=== PATIENT | female | born 1955 | race Hispanic/Latino ===

== ENCOUNTER 2019-02-22 03:44 | Emergency (ER) | payer SELFPAY ==
[2019-02-22] MEDS ORDERED: Meclizine HCl 25 MG TAB ONE (04:01)
--- NOTE | 2019-02-22 07:30 | CT ---
PRELIMINARY REPORT/[facility]/EMERGENCY AFTER HOURS PROCEDURE: PROCEDURE INFORMATION: Exam: CT Head without contrast Exam date and time: 02/22/2019 4:09 AM Clinical history: 63 years old, female; Patient HX: 63 y/o F presents to ED C/O dizziness. She report s onset as yesterday with worsening tonight, with PT noting that she experiences n/v with her dizzine ss, x 3 episodes of emesis. TECHNIQUE: Imaging protocol: Computed tomography of the head without contrast. COMPARISON: No relevant prior studies available. FINDINGS: Brain: No acute intracranial hemorrhage or mass effect. No definite acute infarct by CT. MRI could be more sensitive/specific for detection, as clinically di rected. Ventricles: Ventricle size is normal for age. Bones/joints: No definite acute skull fracture. Sinuses: Included paranasal sinuses are essentially clear. Mastoid air cells: No significant acute finding. IMPRESSION: 1. No acute intracranial hemorrhage or mass effect. 2. No definite acute infarct by CT, see above. 3. Other findings discussed above. Thank you for allowing us to participate in the care of your patient. Dictated and Authenticated by: Roger Nevarez MD 02/22/2019 4:37 AM Central Time ([place] & [place]) FINAL REPORT EMERGENCY AFTER HOURS CT BRAIN WITHOUT CONTRAST: Date: 02/22/19 FINDINGS/IMPRESSION: I agree with the findings and impression given in the preliminary report per [facility] physician. No evide nce of acute intracranial abnormality.
== END 2019-02-22 05:32 | disposition home or self-care (01) ==
LOC: ERS 03:44
DX: R42 Dizziness and giddiness (principal); I10 Essential (primary) hypertension; Z79.899 Other long term (current) drug therapy
CPT/HCPCS: 70450; J8597

== ENCOUNTER 2019-02-23 18:29 | Observation (INO) | payer SELFPAY ==
[~2019-02-23 18:29] MED LIST: Iopamidol 370 76% 100 ML VIAL ONE
[2019-02-23 19:07] LABS: Hemoglobin 15.8 g/dL (12.0-16.0); Mean Corpuscular HGB CONC 33.8 g/dL (32.0-36.0); Mean Corpuscular Hemoglobin 29.3 pg (27.0-31.0); Mean Corpuscular Volume 86.6 fL (78.0-98.0); Mean Platelet Volume 7.3 fL (7.4-10.4); Platelet Count 318 thou/uL (130-400); RBC Distribution Width 12.6 % (11.5-14.5); Red Blood Cell (RBC) Count 5.38 mill/uL (4.20-5.40); White Blood Cell (WBC) Count 14.5 thou/uL (4.8-10.8)
[2019-02-23 19:22] LABS: ALT (SGPT) 65 U/L (8-55); AST (SGOT) 35 U/L (5-34); Albumin 4.3 g/dL (3.4-4.8); Alkaline Phosphatase 113 U/L (40-110); Anion Gap 12 mmol/L (10-20); BUN (Urea Nitrogen) 11 mg/dL (9.8-20.1); Bilirubin, Total 0.8 mg/dL (0.2-1.2); CK (CPK) 87 U/L (29-168); Calc. Creatinine Clearance 0 mL/min (70-130); Calcium 10.2 mg/dL (7.8-10.44); Carbon Dioxide 27 mmol/L (23-31); Chloride 102 mmol/L (98-107); Estimated GFR-MDRD Greater than 90; Globulin 2.8 g/dL (2.4-3.5); Glucose 109 mg/dL (80-115); Potassium 3.1 mmol/L (3.5-5.1); Protein, Total 7.1 g/dL (6.0-8.3); Sodium 138 mmol/L (136-145)
[2019-02-23 19:27] LABS: Band 1 % (5-11); Eosinophils 4 % (0-10); Lymphocytes 25 % (21-51); MDiff Complete? YES; Monocytes 10 % (0-10); Neutrophil 42 % (42-75); Platelet Morphology Comment Appears Adequate; RBC Morphology Normal; Reactive Lymphocytes 18 % (0-10)
[2019-02-23] MEDS ORDERED: Aspirin Chewable 81 MG TAB ONE ×2 (19:48→21:35)
[2019-02-23] MEDS ORDERED: Diazepam 5 MG TAB ONE (20:19)
--- NOTE | 2019-02-23 21:00 | CT ---
CT head without contrast: Multiple axial tomograms obtained through the head without IV enhancement. INDICATIONS: Dizziness COMPARISON: 02/22/2019 FINDINGS: Ventricles have normal size and position. No evidence of intracranial mass, hemorrhage, edema, or infarct. Visualized sinuses and mastoids appear clear. Bony calvarium appears unremarkable. IMPRESSION: No acute finding. No change from yesterday. CTA head: Multiple axial tomograms obtained to the head with IV enhancement in the arterial phase. Multiplanar reconstruction and 3-D postprocessing according to angiogram protocol. INDICATIONS:stroke protocol FINDINGS: Intracranial internal carotid arteries appear patent and symmetric. Middle cerebral arteries appear patent and symmetric. M2 and M3 branches appear symmetric. No evidenc e of focal stenosis or occlusion. Anterior cerebral arteries appear patent and symmetric with no evidence of stenosis or occlusion. Basilar artery appears patent. No significant stenosis. Posterior cerebral arteries appear patent and symmetric. No focal stenosis or occlusion identified. IMPRESSION: Unremarkable CTA brain CTA neck: Multiple axial tomograms obtained through the neck with IV enhancement in arterial phase. Multiplanar reconstruction and 3-D postprocessing according to angiogram protocol. INDICATION: Stroke protocol FINDINGS: No stenosis identified at the origin of the arch vessels. Right common carotid artery appears patent and symmetric. No focal stenosis. Right bulb and right internal carotid artery appear patent. No evidence of stenosis. Left common carotid artery appears patent. No evidence of stenosis. Left internal carotid artery is tortuous proximally but shows no evidence of stenosis or atherosclero tic change. Vertebral arteries appear patent and symmetric. No evidence of stenosis. Visualized soft tissues of the neck appear unremarkable. No mass or adenopathy. IMPRESSION: Unremarkable CTA of neck
[2019-02-24] MEDS ORDERED: Acetaminophen 325 MG TAB PO PRN (01:27)
[2019-02-24] MEDS ORDERED: Acetaminophen 650 MG Suppository PR PRN (01:27)
[2019-02-24] MEDS ORDERED: hydrALAZINE 20 MG/ML VIAL SLOW IVP PRN (01:27)
[2019-02-24] MEDS ORDERED: Ondansetron ODT 4 MG TAB PO PRN (01:27)
[2019-02-24] MEDS ORDERED: Ondansetron PF 4 MG/2 ML Vial IVP PRN (01:27)
[2019-02-24 03:10] LABS: Band 1 % (5-11); Eosinophils 1 % (0-10); Hemoglobin 15.8 g/dL (12.0-16.0); Lymphocytes 57 % (21-51); MDiff Complete? YES; Mean Corpuscular HGB CONC 34.4 g/dL (32.0-36.0); Mean Corpuscular Hemoglobin 29.9 pg (27.0-31.0); Mean Corpuscular Volume 87.1 fL (78.0-98.0); Mean Platelet Volume 7.3 fL (7.4-10.4); Monocytes 5 % (0-10); Neutrophil 36 % (42-75); Platelet Count 297 thou/uL (130-400); Platelet Morphology Comment Appears Adequate; RBC Distribution Width 12.6 % (11.5-14.5); Red Blood Cell (RBC) Count 5.29 mill/uL (4.20-5.40); White Blood Cell (WBC) Count 14.5 thou/uL (4.8-10.8)
[2019-02-24 03:20] LABS: Anion Gap 14 mmol/L (10-20); BUN (Urea Nitrogen) 11 mg/dL (9.8-20.1); Calc. Creatinine Clearance 0 mL/min (70-130); Calcium 10.3 mg/dL (7.8-10.44); Carbon Dioxide 24 mmol/L (23-31); Cardiac Risk 5.4 (Less than 4.5); Chloride 103 mmol/L (98-107); Cholesterol 247 mg/dl (< 200 Desired); Estimated GFR-MDRD Greater than 90; Glucose 95 mg/dL (80-115); HDL Cholesterol 46 mg/dL (>60 Neg Risk); LDL Cholesterol, Calculated 171 mg/dL; Potassium 3.2 mmol/L (3.5-5.1); Sodium 138 mmol/L (136-145); Triglycerides 151 mg/dL (Less than 150)
--- NOTE | 2019-02-24 07:37 | HP ---
TIME OF EVALUATION: 10:30 p.m. PRIMARY CARE DOCTOR: Dr. Zaira Saravia. CODE STATUS: Full code. CHIEF COMPLAINT: Dizziness. HISTORY OF PRESENT ILLNESS: This is a 63-year-old female patient with past medical history of high blood pressure, came to the hospital after having dizziness. The episode started 3 days ago with no clear triggers, no alleviating factors. Symptoms are still present. This is the first time these symptoms happened to her. Symptoms were severe, impairing her activities of daily living. REVIEW OF SYSTEMS: CONSTITUTIONAL: No fever, chills, or generalized weakness. RESPIRATORY: No cough, sputum production, or shortness of breath. CARDIOVASCULAR: No chest pain or palpitation. The patient was hypertensive. GASTROINTESTINAL: No nausea, vomiting, diarrhea, or abdominal pain. SOLE STAPLER WELT: Dizziness, headache, feeling lightheaded. GENITOURINARY: No burning on urination. EXTREMITIES: No leg swelling. All other systems were reviewed and negative except for the findings mentioned above. PAST MEDICAL HISTORY: Includes hypertension. SURGICAL HISTORY: . SOCIAL HISTORY: No alcohol, no drugs, no smoking history. FAMILY HISTORY: Reviewed, noncontributory for current presentation. KNOWN ALLERGIES: No known drug allergies. REPORTED MEDICATIONS: 1. Quinapril/hydrochlorothiazide. 2. Meclizine. PHYSICAL EXAMINATION: VITAL SIGNS: On presentation; blood pressure 169/84 with heart rate 71, respiratory rate was 20, temperature 99.3, oxygen saturation was 96% on room air. GENERAL APPEARANCE: The patient is alert and oriented, in no acute distress. HEENT: Eyes; normal conjunctivae. Moist oral mucosa. Anicteric. No JVD. RESPIRATORY: Bilateral air entry. No rales. No wheezes. Symmetric expansion. CARDIOVASCULAR: Normal rate. Regular rhythm. No murmurs. No gallop. No edema. ABDOMEN: Soft. Normal bowel sounds. MUSCULOSKELETAL: Baseline range of motion and strength. SKIN: Warm and intact. No pallor, rash, or redness. Capillary refill seems to be intact. NEURO: The patient has horizontal nystagmus that can be seen even without exploring it with the rapid component of the nystagmus to the left. PSYCH: Patient is in good mood. No anxiety. Optimal judgment. NEURO: No evidence of any focal weakness. The patient has unsteady gait due to dizziness and nystagmus. DIAGNOSTIC STUDIES: EKG was reviewed. The patient has normal sinus rhythm with a rate of 68 with MO 134, QRS 68, QT corrected 431. Labs were reviewed. The patient has white count 14.5, hemoglobin 15.8, MCV 86.6, platelet count 318. Chemistry; sodium 138, potassium 3.1, chloride 102, carbon dioxide 27, anion gap 12, BUN 11, creatinine 0.66, GFR greater than 90, glucose 109, calcium 10.2. Total bilirubin 0.8 with AST 35, ALT 65, triglycerides 151, cholesterol 247, LDL cholesterol 271. ASSESSMENT AND PLAN: The patient will be placed in the hospital with following medical problems. 1. New onset vertigo. The patient has evident horizontal nystagmus with deviation to the right correcting on movement to the left. We will do a stroke protocol to rule out any posterior circulation stroke. Symptoms are persistent so far. We will monitor and treat accordingly. 2. Uncontrolled hypertension. We will allow the blood pressure to remain uncontrolled for now to allow permissive hypertension. 3. Leukocytosis with white blood cells in the 14.5 range. No evidence of infection. This could be due to acute physical distress at this point. 4. Mildly elevated LFTs with no clear significance at this point, we will monitor and treat accordingly. 5. High cholesterol and triglycerides. Reconcile home medications and try to keep it down. 6. Deep venous thrombosis prophylaxis. 7. Acute hypokalemia. Potassium has been replaced. This is mild. Potassium 3.1. Job ID: [id number]
[2019-02-24 08:03] VITALS: BMI 34.0
[2019-02-24] MEDS ORDERED: FLU VACC QS2019-20(6MOS UP)/PF 60 MCG/0.5 ML SYRINGE IM ONE (08:15)
[2019-02-24] MEDS ORDERED: Enoxaparin Sodium 40 MG/0.4 ML SYRINGE SC SCH (09:00)
[2019-02-24] MEDS: Enoxaparin Sodium 40 MG/0.4 ML SYRINGE SC SCH (09:24)
[2019-02-24] MEDS: Aspirin 325 mg Enteric Coated Tablet PO SCH (09:24)
--- NOTE | 2019-02-24 10:46 | CON ---
DATE OF CONSULTATION: 02/24/2019 CONSULTING PHYSICIAN: Hospitalist Services. IMPRESSION: The patient reports dizziness. PLAN: MRI of the brain to rule out a neurologic etiology. HISTORY OF PRESENT ILLNESS: Ms. Brumfield is a 63-year-old female, who does not speak [place]o. She reportedly has a history of hypertension. She came in to the hospital with complaints of dizziness. She has had episodes that started 3 days ago. Her symptoms are still present and apparently they were severe enough to warrant her to come to the ER. She had a CT of the brain and CT angiogram, which were both negative. She has been admitted for further evaluation. PAST MEDICAL HISTORY: Hypertension. ALLERGIES: NONE. SOCIAL HISTORY: No alcohol or drugs. MEDICATIONS: Quinapril, hydrochlorothiazide, and meclizine. FAMILY HISTORY: Noncontributory. REVIEW OF SYSTEMS: Could not be obtained. PHYSICAL EXAMINATION: GENERAL: She is an obese, middle-aged woman, lying in bed, in no acute distress. VITAL SIGNS: Blood pressure 169/84, pulse 71, respirations 20, and temperature 99.3. HEENT: Pupils are equal. Conjunctivae are clear. Oropharynx clear. NECK: Supple. EXTREMITIES: No cyanosis or edema. NEUROLOGIC: The patient had some horizontal nystagmus. Her exam was otherwise nonfocal. No abnormal movements were seen. Gait was not tested. LABORATORY STUDIES: White blood cell count 14.5. Chemistry panel was unremarkable other than mild elevation in liver enzymes. SUMMARY: This is a middle-aged woman with complaints of vertigo. This has been going on for 3 days. Her initial workup thus far is negative. I suspect that she might have vestibular neuronitis. She can obtain an MRI of the brain to rule out a central cause. She could be treated with prednisone 40 mg per day for 5 days if it comes back negative. Job ID: [id number]
--- NOTE | 2019-02-24 13:11 | MRI ---
MRI Brain WO Con: 02/24/2019 1:29 AM CLINICAL HISTORY: TIA. COMPARISON: None. FINDINGS: Extra axial spaces: Normal in size and morphology for the patient's age. Acute infarction: None. Ventricular system: Normal in size and morphology for the patient's age. Basal cisterns: Normal. Cerebral parenchyma: Minimal chronic ischemic disease of the cerebral white matter.. Midline shift: None. Cerebellum: Normal. Brainstem: Normal. Paranasal sinuses:Clear IMPRESSION:No acute intracranial abnormality. Minimal chronic ischemic disease of the cerebral white matter.
[2019-02-24] MEDS ORDERED: predniSONE 20 MG TAB PO SCH (15:00)
[2019-02-24] MEDS ORDERED: Meclizine HCl 25 MG TAB PO SCH (15:00)
[2019-02-24] MEDS ORDERED: Meclizine HCl 25 MG TAB PO PRN (19:07)
--- NOTE | 2019-02-24 19:07 | PDOC.HOSPP ---
- Subjective Encounter Date: 02/24/19 Encounter Time: 16:00 Subjective: Pt seen for followup re: vestibular neuronitis. Continues to be dizzy and nauseous, unable to ambulate. - Objective Vital Signs & Weight: Vital Signs (12 hours) Temp Pulse Resp BP Pulse Ox 02/24/19 16:00 99.1 F 80 16 144/94 H 91 L 02/24/19 12:00 98.3 F 72 12 137/92 H 93 L 02/24/19 07:19 98.8 F 73 16 166/94 H 96 Weight Weight 174 lb 6.4 oz Result Diagrams: 02/24/19 02:42 02/24/19 02:42 Additional Labs: Labs and MARs reviewed by me Hospitalist ROS - Review of Systems ENT: reports: other (vertigo) Cardiovascular: reports: light headedness. denies: chest pain, palpitations, orthopnea, paroxysmal noc. dyspnea, edema Gastrointestinal: reports: nausea. denies: vomiting, abdominal pain, diarrhea, constipation, melena, hematochezia Neurological: reports: other (vertigo) - Medication Medications: Active Medications Generic Name Dose Route Start Last Admin Trade Name Freq PRN Reason Stop Dose Admin Aspirin 325 mg 02/24/19 09:00 02/24/19 09:24 Ecotrin PO 325 mg DAILY LOU Administration Enoxaparin Sodium 40 mg 02/24/19 09:00 02/24/19 09:24 Lovenox SC 40 mg 0900 LOU Administration Ondansetron HCl 4 mg 02/24/19 01:27 02/24/19 14:53 Zofran IVP 4 mg Q6H PRN Administration Nausea/Vomiting - Exam General - other findings: Obese Eye: anicteric sclera ENT: moist mucosa Neck: supple Heart: RRR, no rubs Respiratory: CTAB Gastrointestinal: soft, non-tender Skin: no rashes Musculoskeletal: normal tone, normal strength Psychiatric: normal affect, normal behavior Hosp A/P (1) Vestibular neuronitis Code(s): H81.20 - VESTIBULAR NEURONITIS, UNSPECIFIED EAR Status: Acute (2) HTN (hypertension) Code(s): I10 - ESSENTIAL (PRIMARY) HYPERTENSION Status: Chronic - Plan Continue steroids and me clizine. MRI report noted. Resume home medications (pt is on antihypertrensives at home).
[2019-02-24] MEDS ORDERED: Atorvastatin Calcium 40 MG TAB PO SCH (21:00)
[2019-02-25] MEDS ORDERED: predniSONE 20 MG TAB PO SCH (08:00)
[2019-02-25] MEDS: Aspirin 325 mg Enteric Coated Tablet PO SCH (08:18)
[2019-02-25] MEDS: Enoxaparin Sodium 40 MG/0.4 ML SYRINGE SC SCH (08:19)
[2019-02-25] MEDS ORDERED: Lisinopril 10 MG TAB PO SCH (09:00)
[2019-02-25] MEDS ORDERED: QUINAPRIL HCL 10 MG PO SCH (09:00)
[2019-02-25] MEDS ORDERED: Hydrochlorothiazide 25 MG TAB PO SCH (09:00)
[2019-02-25] MEDS ORDERED: Meclizine HCl 25 MG TAB PO PRN (09:42)
[2019-02-25] MEDS ORDERED: Potassium Chloride 20 MEQ TAB PO SCH (11:45)
[2019-02-25 12:05] VITALS: BP 122/76; TEMP 98.2
--- NOTE | 2019-02-25 12:58 | PRG ---
DATE OF SERVICE: 02/25/2019 Ms. Brumfield contains complaint of vertigo-type sensation. She has not had any nausea or vomiting. Her vital signs are looking reasonably well. She is still mildly hypertensive. She has no focal complaints. I reviewed her MRI of the brain, which does not show any acute abnormalities. Her echocardiogram shows a normal ejection fraction of 55% to 60%. They are interested in going home. I would suggest we treat her with prednisone 40 mg per day for 5 days and meclizine 25 mg q.6 hours as needed. Job ID: [id number]
--- NOTE | 2019-02-26 12:55 | DIS ---
DATE OF ADMISSION: 02/24/2019 DATE OF DISCHARGE: 02/25/2019 PRIMARY CARE PROVIDER: Zaira Saravia MD DISCHARGE DIAGNOSES: 1. Vestibular neuronitis. 2. Hypokalemia. 3. Dyslipidemia. CONDITION OF PATIENT ON THE DAY OF DISCHARGE: Stable. I assessed Ms. Brumfield on the day of discharge. Her vertigo is better. She is ambulating. Vital signs are stable. S1 and S2 are heard, regular. Lungs are clear to auscultation bilaterally. CONSULTATIONS DURING THIS HOSPITALIZATION: Neurology, Dr. Ramos. DISCHARGE MEDICATIONS: 1. Hydrochlorothiazide 25 mg daily. 2. Quinapril 10 mg daily. 3. Lipitor 20 mg at bedtime. 4. Prednisone 40 mg daily for 4 more days. 5. Meclizine 25 mg every 6 hours as needed, 20 doses to be dispensed. FOLLOWUP APPOINTMENTS: With primary care provider in 3 to 5 days. HOSPITAL COURSE: Ms. Brumfield is a pleasant 63-year-old lady, who was admitted to [facility] for vertigo on . Please refer to Dr. Mejia's history and physical note dated February 24, 2019, for further details. She was seen by Neurology Service. MRI of the brain did not show any acute intracranial abnormality. She had minimal chronic ischemic disease of the cerebral white matter. 2D echocardiogram showed left ventricular ejection fraction of 55% to 60%, E/A flow reversal suggestive of diastolic dysfunction, normal right ventricle structure and function, normal left atrial size, normal right atrial size, mild mitral regurgitation, normal aortic valve structure and function, mild tricuspid regurgitation, normal pulmonic valve structure and function, and normal-sized aortic root. Fasting lipid profile on February 24, showed elevated triglycerides of 151, elevated cholesterol of 247, LDL cholesterol 171, and HDL cholesterol 46. At the time of admission, she had mildly abnormal LFTs with AST 35, ALT 65, and alkaline phosphatase 113. She is advised to have her LFTs checked through her primary care provider in 10 days' time. Many thanks for allowing me to participate in your patient's care. Please feel free to contact me with any questions or concerns. DISCHARGE DESTINATION: Home. Job ID: [id number]
== END 2019-02-25 12:03 | disposition home or self-care (01) ==
LOC: ERS 18:29 → ERHOLD 02-24 00:04 → 2SE 02-24 07:35
PROVIDERS: ADMIT Hospitalist; ATTEND Hospitalist
DX: H81.20 Vestibular neuronitis, unspecified ear (principal); I10 Essential (primary) hypertension; E87.6 Hypokalemia; E78.5 Hyperlipidemia, unspecified; E78.00 Pure hypercholesterolemia, unspecified; E78.1 Pure hyperglyceridemia; D72.829 Elevated white blood cell count, unspecified; Z79.899 Other long term (current) drug therapy
CPT/HCPCS: 36415; 70496; 70498; 70551; 80048; 80053; 80061; 82550; 84484; 85025; 90471; 90686; 93005; 93306; 96372; 96374; G0008; G0378; J1650; J2405; J7512; J8597; Q9967

== ENCOUNTER 2022-06-28 08:11 | Outpatient (CLI) | payer OTHER ==
[2022-06-28] MEDS ORDERED: Iopamidol-370 76% 500 ML 1 ML ONE (11:31)
== END 2022-06-28 08:12 | disposition home or self-care (01) ==
LOC: BICCT 08:11
PROVIDERS: ATTEND Urology
DX: R31.29 Other microscopic hematuria (principal); D35.02 Benign neoplasm of left adrenal gland; K76.0 Fatty (change of) liver, not elsewhere classified; K57.30 Diverticulosis of large intestine without perforation or abscess without bleeding; K42.9 Umbilical hernia without obstruction or gangrene
CPT/HCPCS: 74178; 82565

== ENCOUNTER 2022-12-16 14:11 | Outpatient (CLI) | payer OTHER | END 2022-12-16 14:12 | disposition home or self-care (01) | LOC: RAD 14:11 | PROVIDERS: ATTEND Surgery | DX: K43.6 Other and unspecified ventral hernia with obstruction, without gangrene (principal) | CPT/HCPCS: 71046 ==

== ENCOUNTER → 2023-01-06 | Day surgery (SDC) | payer SELFPAY ==
[2023-01-04 11:49] VITALS: BMI 44.1
[~2023-01-06] MED LIST changes: +Bupivacaine 0.25% HCL 30 ML VIAL ONE; +CEFAZOLIN 2 GM VIAL ONE; +EPINEPHrine 1 MG/ML AMP ONE; +Famotidine/PF 20 mg/2ml Vial ONE; +Fentanyl 250 MCG/5 ML VIAL ONE; +HYDROcodone/Acetaminophen 5/325 mg Tablet ONE; -Iopamidol 370 76% 100 ML VIAL ONE; +Ketorolac Tromethamine 30 MG/ML VIAL ONE; +Lidocaine 1% PF 5 ML VIAL ONE; +Metoclopramide HCl 10 MG/2 ML VIAL ONE; +Ondansetron PF 4 MG/2 ML Vial ONE; +PROPOFOL 200 MG/20 ML VIAL ONE; +Rocuronium Bromide 10 MG/ML (10ML VIAL) ONE; +SUGAMMADEX SODIUM 200 MG/2 ML VIAL ONE; +Sodium Chloride 0.9% 100 ML ONE; +fentaNYL 50 mcg/mL 1 mL Vial ONE; +fentaNYL PF 100 MCG/2 ML SYRINGE ONE
[2023-01-06 12:57] LABS: Hematocrit 45.2 % (36.0-47.0); Hemoglobin 14.9 g/dL (12.0-16.0); Mean Corpuscular Hemoglobin 28.3 pg (27.0-31.0); Mean Corpuscular Volume 85.9 fl (78.0-98.0); Platelet Count 304 10x3/uL (130-400); RBC Distribution Width 14.5 % (11.5-14.5); Red Blood Cell (RBC) Count 5.26 mill/uL (4.20-5.40)
[2023-01-06 13:01] LABS: Delete Auto Diff?? YES; Manual Diff?? YES
[2023-01-06 13:22] LABS: Band 15 % (5-11); Burr Cells SLIGHT = 2-5 cells HPF (0-1); CellaVision Operator ID LAB.MJL; Large Platelets 1.9 % (0-5); Lymphocytes 29 % (21-51); Macrocytosis SLIGHT = 6-15 cells HPF (0-5); Metamyelocyte 1 % (0-0); Monocytes 4 % (0-10); Neutrophil 42 % (42-75); Platelet Adequacy Comment Platelets Normal; Polychromasia SLIGHT = 2-3 cells HPF (0-2); Reactive Lymphocytes 8 % (0-10); Total Cell Count 104
[2023-01-06 13:24] LABS: Anion Gap 15 mmol/L (10-20); BUN (Urea Nitrogen) 13 mg/dL (9.8-20.1); Calc. Creatinine Clearance 111 mL/min (70-130); Calcium 10.8 mg/dL (7.8-10.44); Carbon Dioxide 27 mmol/L (23-31); Chloride 102 mmol/L (98-107); Estimated GFR 97; Glucose 96 mg/dL (80-115); Potassium 4.2 mmol/L (3.5-5.1); Sodium 140 mmol/L (136-145)
== END | disposition home or self-care (01) ==
LOC: SDC 10:44
PROVIDERS: ATTEND Surgery
PROC: 0WUF4JZ Supplement Abdominal Wall with Synthetic Substitute, Percutaneous Endoscopic Approach (ICD-10-PCS; principal; 2023-01-06)
DX: K43.6 Other and unspecified ventral hernia with obstruction, without gangrene (principal); I10 Essential (primary) hypertension; Z87.891 Personal history of nicotine dependence; Z79.899 Other long term (current) drug therapy
CPT/HCPCS: 80048; 85025; C1781; J0171; J1885; J2405; J2704; J2765; J3010; J3490; S0020; S0028